=== PATIENT | female | born 1980 | race Caucasian/White ===

== ENCOUNTER 2017-04-02 23:44 | Emergency (ER) | payer SELFPAY ==
[~2017-04-02] VITALS: Ht 160 cm; Wt 65.0 kg
[2017-04-03] VITALS: Ht 160 cm; Wt 65.0 kg
== END 2017-04-03 03:46 | disposition left against medical advice (07) ==
LOC: E/R 23:44
DX: Z53.21 Procedure and treatment not carried out due to patient leaving prior to being seen by health care provider (principal)

== ENCOUNTER 2017-09-22 12:29 | Outpatient (CLI) | END 2017-09-22 16:30 | disposition home or self-care (01) ==

== ENCOUNTER 2017-12-05 01:35 | Inpatient (IN) | END 2017-12-10 16:02 | disposition home or self-care (01) | DRG 765 ==